=== PATIENT | female | born 1970 | race Caucasian/White ===

== ENCOUNTER 2018-10-01 00:17 | Outpatient (CLI) | payer BC, SELFPAY ==
--- NOTE | 2018-10-01 11:19 | DI.MAMMO_ITS ---
SYMPTOMS/DIAGNOSIS: SCREENING, Z12.31, [facility], Z00.00 MAMMOGRAMS: Mammograms were interpreted according to the usual protocol including computer analysis with CAD system, tomosynthesis and C view imaging. The breasts are of moderate density with fairly symmetrical distribution of fibroglandular tissue. No dominant mass or clumped microcalcification is identified in either breast. Current examination is compared with the previous examinations including September 2017 and there has been no gross interval change in appearance in comparison with the previous studies. CONCLUSION: No specific evidence of malignancy at this time. Routine screening examinations are suggested at yearly intervals in this age group according to the ACS/ACR guidelines. Category 1, breast density category B. SA ASSESSMENT OF FINDINGS: Negative. Category 1. Patient will receive a letter notifying them of these results. BI-RADS category B. There are scattered areas of fibroglandular density.
== END 2018-10-01 00:37 ==
PROVIDERS: PCP Nurse Practitioner Family; Visit Provider Nurse Practitioner Family
DX: Z00.00 Encounter for general adult medical examination without abnormal findings (principal); Z12.31 Encounter for screening mammogram for malignant neoplasm of breast
CPT/HCPCS: 77063; 77067

== ENCOUNTER 2018-10-30 11:02 | Outpatient (REF) | payer BC, SELFPAY ==
[2018-10-30 18:59] LABS: Abs Immature Grans 0.01 k/cumm (0.0-0.09); Absolute Basophil Count 0.02 k/cumm (0.0-0.2); Absolute Eosinophil Count 0.03 k/cumm (0.0-0.7); Absolute Lymphocyte Count 0.73 k/cumm (1.2-3.4); Absolute Monocyte Count 0.27 k/cumm (0.11-0.7); Absolute Neutrophil Count 2.01 k/cumm (1.2-6.7); Basophils % 0.7; HCT 37.2 % (36.0-46.0); HGB 12.3 g/dL (12.0-15.5); Immature Grans % 0.3; Lymphocytes % 23.8; Mean Corp. HGB Concentration 33.1 g/dL (32.0-36.0); Mean Corpuscular Hemoglobin 33.5 pg (27.0-33.0); Mean Corpuscular Volume 101.4 fL (80-95); Mean Platelet Volume 11.4 fL (8.0-11.0); Monocytes % 8.8; Neutrophils % 65.4; Platelet Count 254 x1000/uL (130-400); RBC 3.67 m/cumm (4.00-5.20); RBC Distribution Width 12.1 % (11.7-14.6); White Blood Cell Count 3.07 k/cumm (4.4-10.8)
[2018-10-30 19:09] LABS: ALT 24 U/L (12-78); AST 17 U/L (15-37); Albumin 3.7 g/dL (3.4-5.0); Alkaline Phosphatase 40 U/L (46-116); Anion Gap 7.2 mmol/L (3-11); BUN 17 mg/dL (7-18); Bilirubin, Total 0.4 mg/dL (0.2-1.0); CO2 28.8 mmol/L (21.0-32.0); Calcium 9.3 mg/dL (8.5-10.1); Chloride 105 mmol/L (98-107); Glucose 89 mg/dL (70-100); Potassium 4.3 mmol/L (3.5-5.1); Sodium 141 mmol/L (136-145); Total Protein 6.6 g/dL (6.4-8.2)
== END 2018-10-30 11:22 ==
LOC: NCHCN 11:02
PROVIDERS: PCP Nurse Practitioner Family; Visit Provider Nurse Practitioner Family
DX: K62.5 Hemorrhage of anus and rectum (principal)
CPT/HCPCS: 80053; 85025

== ENCOUNTER 2018-12-01 07:14 | Day surgery (SDC) | payer BC, SELFPAY ==
--- NOTE | 2018-12-01 06:43 | W.COLOREPORT ---
Date of service: 12/01/18 Time of Service: 08:40 Colonoscopy Report Date of procedure: 12/01/18 Pre-op diagnosis general: Rectal bleeding Post-op diagnosis procedure note: other (Internal hemorrhoids) Procedure: Colonoscopy Surgeon: Ines Johnson Anesthesia proc note operative: other (General/ ASA 2/Tiago Lafleur, OMER) Estimated blood loss (mL): 3 Pathology: none sent Complications: None Disposition: same day Indications: Mrs. Del Valle is a pleasant 48 year old female seen in the office for intermittent rectal bleeding for 7 months. Risks, benefits and complications have been reviewed. Complications include but are not limited to bleeding, pain, perforation, missed small lesion/polyp, sore throat, aspiration and adverse reaction to the medications. Questions were entertained and answered to their satisfaction and they wished to proceed. No guarantees were given or implied. Prep: Miralax/Dulcolax Procedure Start Time: 08:40 Procedure End Time: 09:03 Retraction Time: 16 minutes Findings: Grade 2 internal hemorrhoids Procedure Description: After informed consent was obtained the patient was taken to the procedure room and placed in a left decubitous position. Monitors were applied and a time out was done. The patients name, date of , procedure, allergies to medications and metal in their body was reviewed. The patient was then sedated. Once sedated and comfortable a rectal exam was done. External exam was normal. Internal exam revealed a normal sphincter tone and no palpable masses. The scope was then introduced and retro-flexed. Grade 2 internal hemorrhoids were identified. There were no rectal masses or polyps. The scope was then advanced to the cecum without difficulty. The TI and appendiceal orifice were identified. The prep was adequate. The scope was then slowly retracted over 16 minutes back into the rectum. There were no polyps and no diverticula. The scope was removed and the patient was woken up and taken back to Same day surgery in stable condition. The patient tolerated the procedure well and there were no immediate complications. Follow up: The patient should follow up in 10 years unless they develop changes in bowel habits or other new gastrointestinal complaints.
--- NOTE | 2018-12-01 06:45 | W.PM.DSUDISC ---
Discharge Plan Disposition Patient Disposition: HOME Condition: Good Discharge Details Reason For Visit: Colonoscopy Attending Provider: Ines Johnson Primary Care Provider: Jaydon Bar Home Meds and New Rx's Prescriptions: Continued escitalopram oxalate 10 mg tablet 10 mg PO DAILY RF: 0 ferrous gluconate 256 mg (28 mg iron) tablet 256 mg PO TID RF: 0 calcium-vitamin D3-vitamin K 1 EACH tablet,chewable 1 ea PO DAILY RF: 0 Discharge Instructions Instructions: Colonoscopy (DC), Hemorrhoids (DC) Additional Instructions: Findings: Internal hemorrhoids Follow up: 10 years Please call if you develop: fevers >101.5 Nausea or Vomiting Abdominal pain that is not transient DAY SURGERY UNIT POST COLONOSCOPY INSTRUCTIONS 1. Because there will be medication in your system for the next 24 hours, you may feel a little sleepy. Your coordination will be affected. Therefore: a. Do not drive or operate dangerous equipment for 24 hours. b. Do not drink alcohol beverages for 24 hours (not even beer). c. Plan to go home and rest for the day. 2. Generally there are no restrictions on your activity after a day or so has gone by, but you may feel a bit fatigued for a few days. 3 After you arrive home you may have a light meal and return to a normal diet as you can tolerate it without feeling sick to your stomach. 4. After surgery, you may feel pain or discomfort. This should be only transient, but if it persists please contact your doctor. 5. If there are any questions regarding the findings of your procedure, please feel free to contact your doctor. 6. If you are unable to contact your doctor with a problem, contact the hospital at [phone]. 7. Continue all your regular medications unless directed otherwise. I understand the above instructions and have no questions. Signature of Patient or Responsible Adult Escort Date/Time Name of Responsible Adult Escort Signature of Nurse Date/Time Activity:: Activity as Tolerated Diet:: High Fiber Discharge Orders Discharge Orders: Discharge Order (Routine); Ordered 12/01/18 Ordered By: Ines Johnson DS: Diagnosis Discharge Diagnosis (1) Internal hemorrhoids: Status: Acute
[2018-12-01 07:29] VITALS: BP 107/73; PULSE 72; RESP 16; TEMP 36.2; O2SAT 100
[2018-12-01] MEDS: Lactated Ringers 1,000 ML 80 ML IV (07:51)
[2018-12-01 09:50] VITALS: BP 103/69; PULSE 58; RESP 14; TEMP 36.5; O2SAT 100
== END 2018-12-01 10:10 | disposition home or self-care (01) ==
LOC: SUR 07:15
PROVIDERS: PCP Nurse Practitioner Family; Visit Provider Surgery
PROC: 0DJD8ZZ Inspection of Lower Intestinal Tract, Via Natural or Artificial Opening Endoscopic (ICD-10-PCS; CPT 45378; principal; 2018-12-01 08:30)
DX: K62.5 Hemorrhage of anus and rectum (principal); K64.1 Second degree hemorrhoids
CPT/HCPCS: 45378

== ENCOUNTER 2019-11-04 10:39 | Outpatient (REF) | payer BC, SELFPAY ==
[2019-11-04 18:27] LABS: Absolute Basophil Count 0.01 k/cumm (0.0-0.2); Absolute Eosinophil Count 0.04 k/cumm (0.0-0.7); Absolute Lymphocyte Count 1.06 k/cumm (1.2-3.4); Absolute Monocyte Count 0.27 k/cumm (0.11-0.7); Absolute Neutrophil Count 2.22 k/cumm (1.2-6.7); Basophils % 0.3; Eosinophils % 1.1; HCT 38.1 % (36.0-46.0); HGB 12.8 g/dL (12.0-15.5); Lymphocytes % 29.4; Mean Corp. HGB Concentration 33.6 g/dL (32.0-36.0); Mean Corpuscular Hemoglobin 34.1 pg (27.0-33.0); Mean Corpuscular Volume 101.6 fL (80-95); Mean Platelet Volume 11.4 fL (8.0-11.0); Monocytes % 7.5; Neutrophils % 61.7; Platelet Count 259 x1000/uL (130-400); RBC 3.75 m/cumm (4.00-5.20)
[2019-11-04 18:33] LABS: Iron 127 ug/dL (50-170)
[2019-11-04 18:36] LABS: ALT 25 U/L (14-59); AST 19 U/L (15-37); Albumin 3.8 g/dL (3.4-5.0); Alkaline Phosphatase 40 U/L (46-116); BUN 19 mg/dL (7-18); Bilirubin, Total 0.3 mg/dL (0.2-1.0); CREATININE 0.91 mg/dL (0.55-1.02); Calcium 9.1 mg/dL (8.5-10.1); Chloride 105 mmol/L (98-107); Glucose 68 mg/dL (74-106); Potassium 4.6 mmol/L (3.5-5.1); Sodium 139 mmol/L (136-145); Total Protein 6.7 g/dL (6.4-8.2)
== END 2019-11-04 10:59 ==
LOC: NCHCN 10:39
PROVIDERS: PCP Nurse Practitioner Family; Visit Provider Nurse Practitioner Family
DX: R10.30 Lower abdominal pain, unspecified (principal); K62.5 Hemorrhage of anus and rectum
CPT/HCPCS: 80053; 83540; 85025

== ENCOUNTER 2019-11-15 02:04 | Outpatient (CLI) | payer BC, SELFPAY ==
--- NOTE | 2019-11-15 13:25 | DI.CT_ITS ---
EXAM: CT ABDOMEN AND PELVIS W CLINICAL HISTORY: BILAT LOW ABD PAIN, R10.30, ABNL WT LOSS, R63.4, RECTAL BLEEDING TECHNIQUE: CT examination of the abdomen and pelvis was performed with a bolus infusion 87 cc of Omn ipaque 350 and ingestion of dilute barium. Images obtained through the lung bases. COMPARISON: CT ABD PELVIS WITH CONTRAST from 10/29/2010 FINDINGS: Liver and spleen appear normal. Gallbladder has been surgically removed. No biliary dilatation seen . Pancreas appears normal. Abdominal aorta is of normal diameter. Major visceral branches appear intact. Adrenals appear normal bilaterally. There is a tiny nonobstructing left lower pole renal calculus. O therwise, no renal or ureteral abnormality seen. Urinary bladder appears intact. Appendix is normal. No evidence of diverticulitis or bowel obstruction. Note is made of apparent wall thickening of duodenum, question gastric antral wall thickening as well . Findings could represent inflammatory process, giardiasis may also be considered; please correlate clinically with GI symptoms. Possible mild wall thickening of the rectosigmoid, this is probably du e to lack of distention; please correlate clinically. No significant abdominal wall hernia seen. No significant abdominal or pelvic adenopathy. The IVC i s mildly distended with no evidence of thrombus. This is likely due to Valsalva maneuver. Uterus is enlarged and shows heterogeneous enhancement consistent with diffuse uterine leiomyoma. Ov karen are unremarkable in appearance as visualized. No free fluid seen in the pelvis. IMPRESSION: Wall thickening of gastric antrum and duodenum, this may be seen with inflammatory or infectious proc ess; consider giardiasis in a patient with profound weight loss. Nonobstructing left renal calculus noted.
[2019-11-15] MEDS: Normal Saline - Diluent 50 ML VIAL IV (13:30)
[2019-11-15] MEDS: Omnipaque 350 MG/ML 100 ML BTL IJ (13:32)
[2019-11-15] MEDS: Breeza Beverage 473 ML BTL PO ×2 (13:33→13:35)
[2019-11-15] MEDS: Normal Saline Flush 10 ML SYR IVP (13:33)
[2019-11-15] MEDS: Omnipaque 350 MG/ML 50 ML BTL PO (13:35)
== END 2019-11-15 02:24 ==
PROVIDERS: PCP Nurse Practitioner Family; Visit Provider Nurse Practitioner Family
DX: R10.31 Right lower quadrant pain (principal); R10.32 Left lower quadrant pain; R63.4 Abnormal weight loss; K62.5 Hemorrhage of anus and rectum; K31.89 Other diseases of stomach and duodenum; N20.0 Calculus of kidney; D25.9 Leiomyoma of uterus, unspecified; Z90.49 Acquired absence of other specified parts of digestive tract
CPT/HCPCS: 74177; J3490; Q9967

== ENCOUNTER 2020-01-28 12:10 | Outpatient (REF) | payer BC, SELFPAY ==
[2020-01-29 11:31] LABS: Campylobacter PCR Negative (Negative); Salmonella PCR Negative (Negative); Shiga Toxin PCR Negative (Negative); Shigella/Enteroinvasive Ecoli Negative (Negative)
[2020-01-31 18:19] LABS: Cryptosporidium, F Negative (Negative); Giardia Ag, F Negative (Negative)
[2020-01-31 19:55] LABS: Calprotectin <15.6 mcg/g
[2020-02-03 13:13] LABS: Helicobacter pylori Ag, Feces Positive (Negative)
== END 2020-01-28 12:30 ==
LOC: LBN 12:10
PROVIDERS: PCP Nurse Practitioner Family; Visit Provider Nurse Practitioner Family
DX: R10.30 Lower abdominal pain, unspecified (principal); K62.5 Hemorrhage of anus and rectum; R14.0 Abdominal distension (gaseous)
CPT/HCPCS: 87328; 87329; 87338; 87505; 83993

== ENCOUNTER 2020-05-29 00:25 | Outpatient (CLI) | payer BC, SELFPAY ==
--- NOTE | 2020-05-29 08:30 | DI.MAMMO_ITS ---
EXAM: MG MAMMO SCREENING CLINICAL HISTORY: SCREENING,Z12.31. TECHNIQUE: Bilateral full field digital CC and MLO mammographic images were obtained with 3D tomosyn thesis and utilizing computer aided detection (CAD). COMPARISON: Prior mammograms dating back to 2012, the most recent being September 2018. FINDINGS: There are no CAD designations. There are no spiculated masses nor malignant appearing microcalcification groups. Small asymmetric de nsity posteriorly in the right breast is unchanged from prior studies. There is no significant archi tectural distortion nor skin thickening-retraction. IMPRESSION: No radiographic evidence of malignancy. Moderately dense fibroglandular tissue. BI-RADS Category 1 - Negative Breast Density - Category C - Heterogeneously dense Breast density Category C or D implies that the patient has dense breast tissue. Dense breast tissue can make it harder to find cancer on a mammogram. Dense breast tissue is also associated with an incr eased risk of breast cancer. This information about the result of the mammogram report was provided to the patient to raise their awareness. Use this report when you speak with the patient about their risks for breast cancer, which includes their family history. At that time, you may recommend additional screening tests (Ultrasoun d or MRI) as these tests may add significant information. A negative radiographic report should not delay biopsy if a dominant or clinically suspicious mass is present. Up to ten percent of cancers are not identified on mammography. A negative report may reinforce clinical impression. Adenosis and dense breasts may obscure an underlying neoplasm. False positive reports average 6 to 10%. Patient will receive a letter notifying them of these results.
== END 2020-05-29 00:45 ==
PROVIDERS: PCP Nurse Practitioner Family; Visit Provider Obstetrics & Gynecology
DX: Z12.31 Encounter for screening mammogram for malignant neoplasm of breast (principal)
CPT/HCPCS: 77063; 77067

== ENCOUNTER 2020-06-08 17:56 | Outpatient (REF) | payer BC, SELFPAY ==
[2020-06-13 12:06] LABS: Helicobacter pylori Ag, Feces Negative (Negative)
== END 2020-06-08 18:16 ==
LOC: LBN 17:56
PROVIDERS: PCP Nurse Practitioner Family; Visit Provider Nurse Practitioner Family
DX: A04.8 Other specified bacterial intestinal infections (principal)
CPT/HCPCS: 87338

== ENCOUNTER 2021-02-20 17:14 | Outpatient (REF) | payer BC, SELFPAY ==
[2021-02-20 20:11] LABS: HCT 34.5 % (36.0-46.0); HGB 11.6 g/dL (11.2-15.7); MCH 32.2 pg (27.0-33.0); MCHC 33.6 % (32.0-36.0); MCV 95.8 fL (80-95); MPV 11.1 fL (8.0-11.0); Platelet Count 299 10^3/uL (130-400); RDW 11.8 % (11.7-14.6); RDW-SD 41.1 fL; WBC 4.37 10^3/uL (4.4-10.8)
[2021-02-20 20:44] LABS: Anion Gap 10.9 mmol/L (3-11); BUN 18 mg/dL (7-18); CO2 24.1 mmol/L (21.0-32.0); CREATININE 0.8 mg/dL (0.55-1.02); Calcium 9.3 mg/dL (8.5-10.1); Chloride 106 mmol/L (98-107); Glucose 92 mg/dL (74-106); Iron 111 ug/dL (50-170); Sodium 141 mmol/L (136-145); Total Iron Binding Capacity 340 ug/dL (250-450); Transferrin Sat 33 % (15-50)
== END 2021-02-20 17:15 | disposition home or self-care (01) ==
LOC: NCHCN 17:14
PROVIDERS: PCP Nurse Practitioner Family; Referring Provider Nurse Practitioner Family; Visit Provider Nurse Practitioner Family
DX: K62.5 Hemorrhage of anus and rectum (principal)
CPT/HCPCS: 80048; 85027; 83540; 83550

== ENCOUNTER 2021-06-19 00:54 | Outpatient (CLI) | payer BC, SELFPAY ==
--- NOTE | 2021-06-19 | DI.MAMMO_ITS ---
Exam(s) MAMMO SCREENING EXAM: MAMMO SCREENING CLINICAL HISTORY: SCREENING MAMMO FOR BREAST CANCER Z12.31 TECHNIQUE: Bilateral full field digital CC and MLO mammographic images were obtained with 3D tomosyn thesis and utilizing computer aided detection (CAD). COMPARISON: Available for comparison. FINDINGS: Masses/Architectural Distortion: There is an ovoid density in the posterior left breast seen on the M LO view. This area should be further evaluated with a spot compression view. Ultrasound may be bo cated at that time. Microcalcifications: No suspicious pleomorphic-type are seen. Skin Thickening/Nipple Retraction: None. IMPRESSION: 1. Ovoid density in the posterior left breast seen on the MLO view. 2. Spot compression views requested for further evaluation. Ultrasound may be indicated at that time . BI-RADS Category 0 - Assessment Incomplete: Need additional imaging evaluation Breast Density - Category C - Heterogeneously dense Breast density category C or D implies that the patient has dense breast tissue. Dense breast tissue is very common and is not abnormal but dense breast tissue can make it harder to find cancer on a ma mmogram. Also, dense breast tissue may increase their breast cancer risk. This information about the result of the mammogram report was provided to the patient to raise their awareness. Use this report when you speak with the patient about their risks for breast cancer, which includes their family hist ory. At that time, you may recommend for more screening tests (Ultrasound or MRI) as they might be us eful based on their risk. A negative radiographic report should not delay biopsy if a dominant or clinically suspicious mass is present. Up to ten percent of cancers are not identified on mammography. A negative report may reinforce clinical impression. Adenosis and dense breasts may obscure an underlying neoplasm. False positive reports average 6 to 10%. Patient will receive a letter notifying them of these results.
== END 2021-06-19 01:14 ==
PROVIDERS: PCP Nurse Practitioner Family; Visit Provider Obstetrics & Gynecology
DX: Z12.31 Encounter for screening mammogram for malignant neoplasm of breast (principal); R92.8 Other abnormal and inconclusive findings on diagnostic imaging of breast
CPT/HCPCS: 77063; 77067

== ENCOUNTER 2021-06-27 01:12 | Outpatient (CLI) | payer BC, SELFPAY ==
--- NOTE | 2021-06-27 | DI.MAMMO_ITS ---
Exam(s) MAMMO SCREEN CALL BACK UNI US BREAST LT COMPLETE EXAM: MAMMO SCREEN CALL BACK UNI-LEFT AND COMPLETE LEFT BREAST ULTRASOUND CLINICAL HISTORY: OVOID DENSITY LEFT BREAST. TECHNIQUE: Unilateral spot mammographic images obtained with 3D tomosynthesisand utilizing computer aided detection (CAD). . Complete LEFT breast Ultrasound was also performed, including all 4 quadrants, the retroareolar regio n, and the ipsilateral axilla. COMPARISON: Prior mammograms were reviewed. This additional imaging was performed due to findings described on the recent screening mammogram of 06/19/2021. FINDINGS: Additional mammographic views performed todayrender this area less concerning. Ultrasound performed today reveals no obvious abnormality at this location. Only ultrasound finding is at the 2 o'clock position where there is a finding which has appearance of 2 small adjacent hemorr hagic microcysts with total measurement of 6 by 2 millimeters. Alternately, this may represent a sin gle microcysts with septations therein. There are no other ultrasound findings in all 4 quadrants nor in the immediate retroareolar region. Ipsilateral left axilla was negative for significant adenopathy IMPRESSION: 1. No radiographic evidence of malignancy in left breast. 2. Benign-appearing solitary left breast ultrasound finding at 2 o'clock position as described above. Appropriate follow-up is repeat left breast mammogram and ultrasound in 6 months.. The patient was informed of these findings and recommendations prior to leaving the department today. BI-RADS Category 3 - 6 month - Probably Benign Finding: Recommend follow-up mammography in 6 months Breast Density - Category C - Heterogeneously dense Breast density Category C or D implies that the patient has dense breast tissue. Dense breast tissue can make it harder to find cancer on a mammogram. Dense breast tissue is also associated with an incr eased risk of breast cancer. This information about the result of the mammogram report was provided to the patient to raise their awareness. Use this report when you speak with the patient about their risks for breast cancer, which includes their family history. At that time, you may recommend additional screening tests (Ultrasoun d or MRI) as these tests may add significant information. A negative radiographic report should not delay biopsy if a dominant or clinically suspicious mass is present. Up to ten percent of cancers are not identified on mammography. A negative report may reinforce clinical impression. Adenosis and dense breasts may obscure an underlying neoplasm. False positive reports average 6 to 10%. Patient will receive a letter notifying them of these results.
== END 2021-06-27 01:32 ==
PROVIDERS: PCP Nurse Practitioner Family; Visit Provider Obstetrics & Gynecology
DX: R92.8 Other abnormal and inconclusive findings on diagnostic imaging of breast (principal); N60.02 Solitary cyst of left breast
CPT/HCPCS: 76642; 77063; 77067

== ENCOUNTER → 2021-12-24 02:06 | Outpatient (CLI) | payer BC, SELFPAY ==
--- NOTE | 2021-12-24 13:00 | DI.MAMMO_ITS ---
Exam(s) MG MAMMO DIAGNOSTIC UNI EXAM: MG MAMMO DIAGNOSTIC UNI -LEFT AND COMPLETE LEFT BREAST ULTRASOUND CLINICAL HISTORY: 6-MO F/U ABNL MAMMO, R92.8. TECHNIQUE: Unilateral LEFT CC AND MLO images were obtained with 3D tomosynthesis technique and [employer] computer aided detection (CAD). COMPLETE left breast ultrasound was performed including all 4 quadrants, the retroareolar region and left axilla. COMPARISON: Prior mammograms were reviewed, the most recent being June 2021. Ultrasound June 2021 was also reviewed.. FINDINGS: DIAGNOSTIC LEFT BREAST MAMMOGRAM: The previously described small benign-appearing oval nodule posteri aquilino is no longer seen. There are no new spiculated masses nor malignant-appearing microcalcificatio n groups in left breast. No new architectural distortion or skin thickening-traction. COMPLETE LEFT BREAST ULTRASOUND: No evidence of solid or significant cystic lesions in all 4 quadrant s. The previously described microcysts at 2 o'clock position appear to have resolved. No new findin gs in the retroareolar regions. No significant adenopathy in the left axilla. IMPRESSION: 1. No radiographic evidence of malignancy in left breast. 2. Negative complete left breast ultrasound. The previously present microcysts at 2 o'clock position have resolved. Appropriate follow-up is to keep this patient yearly mammogram schedule, with earlier imaging if a se lf detected breast change is noted.. The patient was informed of the findings and follow-up recommendations by myself prior to leaving the department today. BI-RADS Category 2 - Benign Findings Breast Density - Category B - Scattered areas of fibroglandular density Breast density Category C or D implies that the patient has dense breast tissue. Dense breast tissue can make it harder to find cancer on a mammogram. Dense breast tissue is also associated with an incr eased risk of breast cancer. This information about the result of the mammogram report was provided to the patient to raise their awareness. Use this report when you speak with the patient about their risks for breast cancer, which includes their family history. At that time, you may recommend additional screening tests (Ultrasoun d or MRI) as these tests may add significant information. A negative radiographic report should not delay biopsy if a dominant or clinically suspicious mass is present. Up to ten percent of cancers are not identified on mammography. A negative report may reinforce clinical impression. Adenosis and dense breasts may obscure an underlying neoplasm. False positive reports average 6 to 10%. Patient will receive a letter notifying them of these results.
--- NOTE | 2021-12-24 13:00 | DI.US_ITS ---
Exam(s) US BREAST LT COMPLETE EXAM: US BREAST LT COMPLETE CLINICAL HISTORY: 6-MO F/U ABNL LT MAMMO, R92.8. TECHNIQUE: Complete ultrasound of the left breast was performed including all 4 quadrants, the retro areolar region, and the ipsilateral axilla. COMPARISON: Prior mammograms were reviewed. Prior ultrasound June 17 also reviewed FINDINGS: No evidence of solid or significant cystic lesions in all 4 quadrants. The previously present microcysts at 2 o'clock position have resolved. Retroareolar region unremarkable. Ipsilateral left axilla unremarkable. IMPRESSION: Negative complete left breast ultrasound. Appropriate follow-up is to keep this patient yearly mammogram schedule, with earlier imaging if a se lf detected breast change is noted.. BI-RADS Category 2 - Benign Findings Breast Density - Category B - Scattered areas of fibroglandular density Breast density Category C or D implies that the patient has dense breast tissue. Dense breast tissue can make it harder to find cancer on a mammogram. Dense breast tissue is also associated with an incr eased risk of breast cancer. This information about the result of the mammogram report was provided to the patient to raise their awareness. Use this report when you speak with the patient about their risks for breast cancer, which includes their family history. At that time, you may recommend additional screening tests (Ultrasoun d or MRI) as these tests may add significant information. A negative radiographic report should not delay biopsy if a dominant or clinically suspicious mass is present. Up to ten percent of cancers are not identified on mammography. A negative report may reinforce clinical impression. Adenosis and dense breasts may obscure an underlying neoplasm. False positive reports average 6 to 10%. Patient will receive a letter notifying them of these results.
== END ==
PROVIDERS: PCP Nurse Practitioner Family; Visit Provider Obstetrics & Gynecology
DX: R92.2 Inconclusive mammogram
CPT/HCPCS: 76642; 77061; 77065; G0279

== ENCOUNTER 2022-09-08 02:15 | Emergency (ER) | payer BC, SELFPAY ==
[2022-09-08 02:21] VITALS: BP 132/80; PULSE 85; RESP 20; TEMP 36.8; O2SAT 97
--- NOTE | 2022-09-08 02:31 | W.ED.GENAD ---
Discharge Plan Disposition Patient Disposition: Home Condition: Improving Discharge Details Clinical Impression: Bleeding external hemorrhoids Primary Care Provider: Kenzie Salinas ED Provider: Sparkle Pfeiffer Home Meds and New Rx's Prescriptions: Continued escitalopram oxalate 10 mg tablet 10 mg PO DAILY ferrous gluconate 256 mg (28 mg iron) tablet 256 mg PO TID calcium-vitamin D3-vitamin K 1 EACH tablet,chewable 1 ea PO DAILY Discharge Instructions Instructions: Hemorrhoids (ED), Rectal Bleeding (ED), Thrombosed Hemorrhoid (ED) Additional Instructions: You were noted to have an external hemorrhoid on your rectal exam today. This is likely the cause of your bright red rectal bleeding. Your hemorrhoid also may be thrombosed which is a painful blood clot within a hemorrhoid. Although you have no significant pain, it is recommended to avoid any activities which cause increased rectal pressure including sitting too long on the toilet, straining with bowel movements, lifting heavy objects, etc. It is recommended to use a sitz bath or sit in a warm bath which can help reduce the size of the hemorrhoid. You can also use stool softeners if you become constipated or have difficulty with bowel movements due to rectal pain with your hemorrhoid. Call the general surgery office for reevaluation if you have worsening or no improvement of your symptoms. Return immediately to the emergency department if you develop any worsening or new concerning symptoms such as fever, continued rectal bleeding, significant pain or any other concerns. Referrals: Ines Johnson MD [ [facility] STAFF PHYSICIAN] - Discharge Data Discharge Date/Time-TO BE ENTERED AT DEPARTURE: 09/08/22 04:03 Discharge Physician: Sparkle Pfeiffer Medical Decision Making 0230 -- 52-year-old post-menopausal female with a history of hemorrhoids presents with bright red rectal bleeding for the past 2 hours. She is not taking any anticoagulation and denies any other symptoms. Review of records noted that in November 2018 patient had a colonoscopy which revealed grade 2 internal hemorrhoids. Patient appears comfortable and nontoxic. Her vitals are within normal limits. She admits to drinking approximately 6-7 alcoholic drinks tonight but she appears clinically sober and answering questions appropriately. Her abdomen is soft and nontender. Rectal exam reveals a 1 x 1 cm thrombosed external hemorrhoid. This area is nontender and she denies any external rectal pain. There is dried blood around the area but no active bleeding. A digital exam reveals no other masses and Hemoccult positive for gross blood. Suspect GI bleeding in the setting of an external hemorrhoid. Do not see an indication for imaging. As patient states this is heavier bleeding than pt has experienced in the past, will obtain screening labs including hemoglobin. If labs are reassuring and she has no further breathing during observation here in the emergency department, do not see indication for 4-hour hemoglobin and patient is agreeable with this plan. 0400 --labs reviewed and reassuring. Hemoglobin normal at 12. Patient reassessed and she states bleeding is near resolved. She states she is having some spotting but no significant bleeding at this time. Patient would like to go home. She is advised to continue to monitor for bleeding and avoid activities which cause increased abdominal or rectal pressure and to use sitz bath's or stool softeners as needed. Discussed that her hemorrhoid appears likely thrombosed and this may resolve with supportive care. She is advised to call general surgery office for further evaluation if her symptoms do not improve or worsen. Usual and customary return precautions given prior to discharge. Medical Records Medical records reviewed: Yes I reviewed the patient's medical records. Lab Data Lab results reviewed: Yes I reviewed the patient's lab results. Labs: Laboratory Tests Range/Units 09/08/22 09/08/22 03:00 03:00 WBC (4.4-10.8) 10^3/uL 3.33 L RBC (3.93-5.22) 10^6/uL 3.61 L Hgb (11.2-15.7) g/dL 12.1 Hct (36.0-46.0) % 34.9 L MCV (80-95) fL 97 H MCH (27.0-33.0) pg 33.5 H MCHC (32.0-36.0) % 34.7 RDW (11.7-14.6) % 11.7 Plt Count (130-400) 10^3/uL 286 MPV (8.0-11.0) fL 10.8 Immature Gran % 0.0 Neutrophils % 55.0 Lymphocytes % 39.6 Monocytes % 4.8 Eosinophils % 0.3 Basophils % 0.3 Nucleated RBC % (0.0-0.3) % 0.0 Absolute Neutrophils (1.2-6.7) 10^3/uL 1.83 Absolute Lymphocytes (1.2-3.4) 10^3/uL 1.32 Absolute Monocytes (0.1-0.8) 10^3/uL 0.16 Absolute Eosinophils (0.0-0.7) 10^3/uL 0.01 Absolute Basophils (0.0-0.2) 10^3/uL 0.01 Sodium (136-145) mmol/L 146 H Potassium (3.5-5.1) mmol/L 3.5 Chloride (98-107) mmol/L 110 H Carbon Dioxide (21.0-32.0) mmol/L 26.2 Anion Gap (3-11) mmol/L 9.8 BUN (7-18) mg/dL 15 Creatinine (0.55-1.02) mg/dL 0.9 Est GFR (CKD-EPI 2020) (mL/min/1.73m2) 77.40 Glucose (74-106) mg/dL 116 H Calcium (8.5-10.1) mg/dL 9.2 Total Bilirubin (0.2-1.0) mg/dL 0.2 AST (15-37) U/L 29 ALT (14-59) U/L 39 Alkaline Phosphatase (46-116) U/L 57 Total Protein (6.4-8.2) g/dL 7.4 Albumin (3.4-5.0) g/dL 3.9 HPI General Mode of arrival: ambulatory. Date/Time Provider Initiated Documentation: 09/08/22 02:30. Limitations to Documentation: no limitations. Information obtained by: patient. HPI Narrative: Patient is a 52-year-old female with a history of hemorrhoids presents for rectal bleeding for the last 2 hours. Patient states she was out this evening and drank approximately 6-7 alcoholic drinks and when she came home she had to use the bathroom and she noted bright red rectal bleeding going into the toilet. She states it was approximately more than 1 tablespoon. She admits to small amounts of clots. She denies any maroon-colored or black-colored blood. She denies any fever, chest pain, shortness of breath, dizziness, nausea, vomiting, urinary symptoms, diarrhea or rectal pain. She denies any known injury. She states she has had a previous history of rectal bleeding with hemorrhoids in the past. She denies any anticoagulation. Related Data Home Medications Medication Instructions Recorded Confirmed calcium-vitamin D3-vitamin K 500 1 ea PO DAILY 03/30/13 09/08/22 mg-1,000 unit-40 mcg chewable tablet escitalopram oxalate 10 mg tablet 10 mg PO DAILY 11/06/18 09/08/22 ferrous gluconate 256 mg (28 mg 256 mg PO TID 11/06/18 12/01/18 iron) tablet Allergies Allergy/AdvReac Type Severity Reaction Status Date / Time No Known Allergies Allergy Unverified 09/08/22 02:27 General Stated Complaint: GI Bleed OMER: 3 Review of Systems All systems reviewed & are unremarkable except as noted in HPI and below Constitutional Constitutional: Reports as per HPI, Denies chills and Denies fever(s) Eyes Eyes: Denies blurry vision ENT Ears, Nose, Mouth, and Throat: Denies dizziness, Denies sore throat and Denies throat swelling Cardiovascular Cardiovascular: Denies chest pain and Denies dyspnea Respiratory Respiratory: Denies cough and Denies dyspnea Gastrointestinal Gastrointestinal: Denies abdominal pain, Reports hematochezia, Denies diarrhea and Denies vomiting Genitourinary Genitourinary: Denies hematuria and Denies dysuria Musculoskeletal Musculoskeletal: Denies back pain and Denies numbness Integumentary/Breasts Skin/Breast: Denies lesions and Denies rash Neurologic Neurologic: Denies dizziness, Denies localized weakness and Denies numbness Allergic/Immunologic Allergic/Immunologic: Denies throat swelling PFSH All Active Problems (Updated 09/08/22 @ 03:49 by Sparkle Pfeiffer DO) Bleeding external hemorrhoids (Acute) Internal hemorrhoids (Acute ~12/01/18) Chronic rhinitis (Acute 08/12/13) Medical History (Updated 09/08/22 @ 03:49 by Sparkle Pfeiffer DO) Abnormal weight loss Anxiety Anxiety and depression Fibroid uterus Rectal bleed Surgical History Colonoscopy - IV Sedation History of cholecystectomy Family History Mother No problems noted. Father No problems noted. Social History Smoking/Tobacco Use Status: Never Smoking risk assessment performed?: Yes Alcohol Intake: current Alcohol Intake frequency: a few times a week Alcohol type: hard liquor Drug use: Never Do you feel safe at home: Yes Do you feel safe in your relationship?: Yes Exam Const General: cooperative, healthy appearing and no acute distress HENMT Head: normal to inspection Face and sinus: normal facial exam Eyes General: appearance normal, both eyes and all related structures Pupils: PERRL EOM: EOM intact bilaterally Neck Neck: normal visual inspection and No submandibular swelling Lymphatic: no lymphadenopathy noted Chest Chest: normal inspection of the chest and no tenderness Resp Effort & Inspection: normal respiratory effort and able to speak in complete sentences Auscultation: clear to auscultation bilaterally Cardio Rate: regular rate Rhythm: regular rhythm GI Inspection: normal to inspection Palpation: soft, not firm, not rigid and nontender Auscultation: hypoactive bowel sounds Rectal Exam - female: heme positive stool Rectal exam heme positive - female: gross blood (dried bright red blood around 1x1c thrombosed external hemorrhoid. ) and hemorrhoids Back/Spine/Pelvis Thoracic/Lumbar Spine: thoracic and lumbar spine normal to inspection Pelvis: no pain with anterior-posterior compression Skin General skin exam: no rashes or lesions noted Neuro General: patient alert, patient awake and patient oriented x3 Cognition: normal cognition Speech: speech normal Motor: muscle tone normal throughout Sensory Exam: no sensory deficits noted Extrem General: normal to inspection, full ROM, capillary refill normal, no calf tenderness bilaterally and no edema Psych Appearance: grossly normal Mental Status: mental status grossly normal Speech and Movement: speech and movement normal Affect: normal affect Course Vital Signs Vital signs: Vital Signs Temperature 98.2 F 09/08/22 02:21 Pulse 85 09/08/22 02:21 Respiratory Rate 20 09/08/22 02:21 Blood Pressure 132/80 09/08/22 02:21 Pulse Oximetry 97 09/08/22 02:21 Temperature 98.2 F 09/08/22 02:21 Temperature Source Oral 09/08/22 02:21 Pulse 85 09/08/22 02:21 Respiratory Rate 20 09/08/22 02:21 Respiratory Effort Normal 09/08/22 02:25 Blood Pressure 132/80 09/08/22 02:21 Blood Pressure Position Sitting 09/08/22 02:21 Pulse Oximetry 97 09/08/22 02:21 Oxygen Delivery Method Room Air 09/08/22 02:21 Oxygen Flow Rate 0 09/08/22 02:21 Pain Level 0 09/08/22 02:21
[2022-09-08 03:10] LABS: Absolute Basophil Count 0.01 10^3/uL (0.0-0.2); Absolute Eosinophil Count 0.01 10^3/uL (0.0-0.7); Absolute Lymphocyte Count 1.32 10^3/uL (1.2-3.4); Absolute Monocyte Count 0.16 10^3/uL (0.1-0.8); Absolute Neutrophil Count 1.83 10^3/uL (1.2-6.7); Basophils % 0.3; Eosinophils % 0.3; HCT 34.9 % (36.0-46.0); HGB 12.1 g/dL (11.2-15.7); Lymphocytes % 39.6; MCH 33.5 pg (27.0-33.0); MCHC 34.7 % (32.0-36.0); MCV 97 fL (80-95); MPV 10.8 fL (8.0-11.0); Monocytes % 4.8; Platelet Count 286 10^3/uL (130-400); RBC 3.61 10^6/uL (3.93-5.22); RDW 11.7 % (11.7-14.6); RDW-SD 41.1 fL; WBC 3.33 10^3/uL (4.4-10.8)
[2022-09-08 03:26] LABS: ALT 39 U/L (14-59); AST 29 U/L (15-37); Albumin 3.9 g/dL (3.4-5.0); Alkaline Phosphatase 57 U/L (46-116); Anion Gap 9.8 mmol/L (3-11); BUN 15 mg/dL (7-18); Bilirubin, Total 0.2 mg/dL (0.2-1.0); CO2 26.2 mmol/L (21.0-32.0); CREATININE 0.9 mg/dL (0.55-1.02); Calcium 9.2 mg/dL (8.5-10.1); Chloride 110 mmol/L (98-107); Glucose 116 mg/dL (74-106); Potassium 3.5 mmol/L (3.5-5.1); Sodium 146 mmol/L (136-145); Total Protein 7.4 g/dL (6.4-8.2)
== END 2022-09-08 04:03 | disposition home or self-care (01) ==
PROVIDERS: Emergency Provider Physician Assistant; PCP Nurse Practitioner Family
DX: K64.4 Residual hemorrhoidal skin tags (principal)
CPT/HCPCS: 80053; 99282; 85025

== ENCOUNTER 2023-06-20 15:18 | Outpatient (REF) | payer BC, SELFPAY ==
[2023-06-20 19:03] LABS: HCT 36.3 % (36.0-46.0); HGB 12.5 g/dL (11.2-15.7); MCH 33.8 pg (27.0-33.0); MCHC 34.4 % (32.0-36.0); MCV 98 fL (80-95); Platelet Count 287 10^3/uL (130-400); RDW 11.6 % (11.7-14.6); WBC 3.02 10^3/uL (4.4-10.8)
[2023-06-20 19:15] LABS: ALT 30 U/L (14-59); AST 27 U/L (15-37); Albumin 3.9 g/dL (3.4-5.0); Alkaline Phosphatase 47 U/L (46-116); Anion Gap 4.3 mmol/L (3-11); BUN 17 mg/dL (7-18); Bilirubin, Total 0.2 mg/dL (0.2-1.0); CO2 28.7 mmol/L (21.0-32.0); CREATININE 0.8 mg/dL (0.55-1.02); Calcium 9.3 mg/dL (8.5-10.1); Calculated LDL 117 mg/dL (<100); Chloride 105 mmol/L (98-107); Cholesterol 213 mg/dL (<200); Glucose 98 mg/dL (74-106); HDL Cholesterol 72 mg/dL (40-60); Potassium 4.4 mmol/L (3.5-5.1); Sodium 138 mmol/L (136-145); Total Protein 7.5 g/dL (6.4-8.2); Triglyceride 123 mg/dL (<150)
== END 2023-06-20 15:19 | disposition home or self-care (01) ==
LOC: NCHCN 15:18
PROVIDERS: PCP Nurse Practitioner Family; Visit Provider Nurse Practitioner Family
DX: F41.8 Other specified anxiety disorders (principal); Z13.6 Encounter for screening for cardiovascular disorders
CPT/HCPCS: 80053; 80061; 85027

== ENCOUNTER → 2023-06-23 02:17 | Outpatient (CLI) | payer BC, SELFPAY ==
--- NOTE | 2023-06-23 08:35 | DI.MAMMO_ITS ---
Exam(s) MAMMO SCREENING EXAM: MAMMO SCREENING CLINICAL HISTORY: BREAST CANCER SCREENING Z12.31 TECHNIQUE: Bilateral full field digital CC and MLO mammographic images were obtained with 3D tomosyn thesis and utilizing computer aided detection (CAD). COMPARISON: Available for comparison. FINDINGS: Masses/Architectural Distortion: None seen. Microcalcifications: No suspicious pleomorphic-type are seen. Skin Thickening/Nipple Retraction: None. IMPRESSION: 1. No significant interval change with no specific features of malignancy noted. 2. Unless there is more urgent need, screening mammography is recommended, as per [employer] guidelines. BI-RADS Category 1 - Negative Breast Density - Category B - Scattered areas of fibroglandular density Breast density category C or D implies that the patient has dense breast tissue. Dense breast tissue is very common and is not abnormal but dense breast tissue can make it harder to find cancer on a ma mmogram. Also, dense breast tissue may increase their breast cancer risk. This information about the result of the mammogram report was provided to the patient to raise their awareness. Use this report when you speak with the patient about their risks for breast cancer, which includes their family hist ory. At that time, you may recommend for more screening tests (Ultrasound or MRI) as they might be us eful based on their risk. A negative radiographic report should not delay biopsy if a dominant or clinically suspicious mass is present. Up to ten percent of cancers are not identified on mammography. A negative report may reinforce clinical impression. Adenosis and dense breasts may obscure an underlying neoplasm. False positive reports average 6 to 10%. Patient will receive a letter notifying them of these results.
== END ==
PROVIDERS: PCP Nurse Practitioner Family; Visit Provider Nurse Practitioner Women's Health
DX: Z12.31 Encounter for screening mammogram for malignant neoplasm of breast (principal)
CPT/HCPCS: 77063; 77067

== ENCOUNTER 2023-12-26 22:35 | Outpatient (REF) | payer BC, SELFPAY ==
[2023-12-26 18:26] LABS: HCT 35.9 % (36.0-46.0); HGB 12.3 g/dL (11.2-15.7); MCH 33.8 pg (27.0-33.0); MCHC 34.3 % (32.0-36.0); MCV 99 fL (80-95); MPV 11.7 fL (8.0-11.0); Platelet Count 297 10^3/uL (130-400); RBC 3.64 10^6/uL (3.93-5.22); RDW 11.8 % (11.7-14.6); RDW-SD 42.7 fL
[2023-12-26 19:06] LABS: Absolute Basophil Count 0.03 10^3/uL (0.0-0.2); Absolute Lymphocyte Count 1.87 10^3/uL (1.2-3.4); Absolute Neutrophil Count 1.39 10^3/uL (1.2-6.7); Diff Comment Manual Differential; RBC Morphology Normal
[2023-12-26 19:10] LABS: Ferritin 10 ng/mL (8-252); Vitamin B12 687 pg/mL (193-986)
[2023-12-26 19:11] LABS: Folate > 20.0 ng/mL (8.6-20.0)
[2023-12-26 19:25] LABS: Iron 86 ug/dL (50-170); Total Iron Binding Capacity 425 ug/dL (250-450)
== END 2023-12-26 22:36 | disposition home or self-care (01) ==
LOC: NCHCN 22:35
PROVIDERS: PCP Nurse Practitioner Family; Visit Provider Nurse Practitioner Family
DX: R79.89 Other specified abnormal findings of blood chemistry (principal); R71.8 Other abnormality of red blood cells
CPT/HCPCS: 82607; 82728; 82746; 83540; 83550; 85025

== ENCOUNTER 2024-06-29 02:07 | Outpatient (CLI) | payer BC, SELFPAY ==
--- NOTE | 2024-06-29 | DI.MAMMO_ITS ---
Exam(s) MAMMO SCREENING EXAM: MAMMO SCREENING CLINICAL HISTORY: SCREENING MAMMO Z12.31 TECHNIQUE: Mammograms were interpreted according to the usual protocol including computer analysis w [employer] CAD system, tomosynthesis and C-view imaging. COMPARISON: 2016 through 2023 FINDINGS: The breasts are composed of scattered fibroglandular densities, Breast Density category B. No suspicious masses or suspicious microcalcifications are seen. No skin thickening or abnormal axillary lymph nodes are seen. There has been no significant change from prior exams. IMPRESSION: BI-RADS Category 1, Negative mammogram Yearly screening mammography is recommended. Breast Density - Category B, scattered fibroglandular densities. A negative radiographic report should not delay biopsy if a dominant or clinically suspicious mass is present. Up to ten percent of cancers are not identified on mammography. A negative report may reinforce clinical impression. Adenosis and dense breasts may obscure an underlying neoplasm. False positive reports average 6 to 10%. Patient will receive a letter notifying them of these results.
== END 2024-06-29 02:27 ==
PROVIDERS: PCP Nurse Practitioner Family; Visit Provider Nurse Practitioner Women's Health
DX: Z12.31 Encounter for screening mammogram for malignant neoplasm of breast (principal); R92.323 Mammographic fibroglandular density, bilateral breasts
CPT/HCPCS: 77063; 77067

== ENCOUNTER 2024-07-13 18:01 | Outpatient (REF) | payer BC, SELFPAY ==
[2024-07-13 18:53] LABS: Absolute Basophil Count 0.01 10^3/uL (0.0-0.2); Absolute Eosinophil Count 0.04 10^3/uL (0.0-0.7); Absolute Lymphocyte Count 1.49 10^3/uL (1.2-3.4); Absolute Neutrophil Count 1.37 10^3/uL (1.2-6.7); Basophils % 0.3 %; Eosinophils % 1.3 %; HCT 36.7 % (36.0-46.0); HGB 12.3 g/dL (11.2-15.7); Lymphocytes % 47.9 %; MCH 33.2 pg (27.0-33.0); MCHC 33.5 % (32.0-36.0); MCV 99 fL (80-95); MPV 11.1 fL (8.0-11.0); Monocytes % 6.4 %; Neutrophils % 44.1 %; Platelet Count 264 10^3/uL (130-400); RDW 11.6 % (11.7-14.6); WBC 3.11 10^3/uL (4.4-10.8)
[2024-07-13 21:38] LABS: ALT 25 U/L (14-59); AST 16 U/L (15-37); Albumin 4.2 g/dL (3.4-5.0); Alkaline Phosphatase 54 U/L (46-116); BUN 19 mg/dL (7-18); Bilirubin, Total 0.28 mg/dL (0.2-1.0); CREATININE 0.8 mg/dL (0.55-1.02); Calcium 9.7 mg/dL (8.5-10.1); Chloride 105 mmol/L (98-107); Estimated GFR 88.05 (mL/min/1.73m2); Glucose 88 mg/dL (74-106); Potassium 4.6 mmol/L (3.5-5.1); Sodium 140 mmol/L (136-145); Total Protein 7.4 g/dL (6.4-8.2)
== END 2024-07-13 18:02 | disposition home or self-care (01) ==
LOC: NCHCN 18:01
PROVIDERS: PCP Nurse Practitioner Family; Visit Provider Nurse Practitioner Family
DX: R10.32 Left lower quadrant pain (principal)
CPT/HCPCS: 80053; 85025

== ENCOUNTER 2025-05-20 09:41 | Outpatient (REF) | payer SELFPAY ==
[2025-05-20 19:19] LABS: Abs Immature Grans 0.00 10^3/uL (0.0-0.06); HCT 34.8 % (36.0-46.0); HGB 11.9 g/dL (11.2-15.7); Immature Grans % 0.0 %; MCH 33.2 pg (27.0-33.0); MCHC 34.2 % (32.0-36.0); MCV 97 fL (80-95); MPV 11.0 fL (8.0-11.0); Platelet Count 278 10^3/uL (130-400); RBC 3.58 10^6/uL (3.93-5.22); RDW 11.4 % (11.7-14.6); RDW-SD 40.8 fL; WBC 3.08 10^3/uL (4.4-10.8)
[2025-05-20 19:41] LABS: Hemoglobin A1C 5.4 % (<5.7)
[2025-05-20 19:49] LABS: ALT 19 U/L (10-49); AST 22 U/L (<34); Albumin 4.4 g/dL (3.2-5.0); Alkaline Phosphatase 58 U/L (46-116); Anion Gap 8.3 mmol/L (3-11); BUN 21 mg/dL (9-23); Bilirubin, Total 0.30 mg/dL (0.2-1.2); CO2 27.7 mmol/L (20.0-31.0); Calcium 10.0 mg/dL (8.3-10.6); Chloride 108 mmol/L (98-107); Cholesterol 207 mg/dL (<200); Folate > 24.0 ng/mL (>5.38); Glucose 111 mg/dL (74-106); HDL Cholesterol 78 mg/dL (>40); Potassium 3.9 mmol/L (3.5-5.1); Sodium 144 mmol/L (136-145); Total Protein 7.1 g/dL (5.7-8.2)
== END 2025-05-20 09:42 | disposition home or self-care (01) ==
LOC: NCHCN 09:41
PROVIDERS: PCP Nurse Practitioner Family
DX: Z00.00 Encounter for general adult medical examination without abnormal findings (principal); Z13.6 Encounter for screening for cardiovascular disorders; Z13.1 Encounter for screening for diabetes mellitus
CPT/HCPCS: 80053; 80061; 82746; 83036; 85025